=== PATIENT | male | born 1950 | race Caucasian/White ===

== ENCOUNTER 2017-12-31 14:51 | Emergency (ER) | payer OTHER ==
--- NOTE | 2017-12-31 15:44 | EDPHY ---
H & P Time Seen by Provider: 12/31/17 15:20 HPI/ROS: CHIEF COMPLAINT: Abdominal pain HISTORY OF PRESENT ILLNESS: Patient is a 67-year-old male with a history of coronary artery disease, hypertension and high cholesterol who presents emergency department with left lower abdominal pain. Patient states his pain started this morning. It moved from left lower quadrant to the left flank. He has had nausea nonbloody emesis x1. No diarrhea. The patient denies fevers or chills. No dysuria frequency. No hematuria. REVIEW OF SYSTEMS: My complete review of systems is negative except as mentioned in the HPI. Past Medical/Surgical History: Includes coronary artery disease, IHSS, hypertension, high cholesterol Past surgical history: Orthopedic surgery, hydrocele surgery Social history: Patient does not smoke or drink alcohol. Smoking Status: Never smoked Physical Exam: Vitals noted GENERAL: Well-appearing, in no acute distress, alert. HEENT: Eyes normal to inspection, normal pharynx, no signs of dehydration. NECK: [No thyromegaly, no lymphadenopathy, supple. RESPIRATORY: Clear to auscultation bilaterally, no rales, rhonchi or wheezing. CVS: Regular rate and rhythm, no rubs, murmurs, or gallops. ABDOMEN: Soft, left lower quadrant tenderness to palpation. This extends laterally in [place] on his abdomen. No rash. Nondistended, no organomegaly. BACK: Normal to inspection, no CVA tenderness. SKIN: Normal color, no rash, warm, dry. No pallor. EXTREMITIES: No pedal edema, no calf tenderness, no Homans sign or cords, no joint swelling. NEURO/PSYCH: Alert and oriented, normal mood and affect, normal motor sensory exam. No obvious cranial nerve deficit. Constitutional: Initial Vital Signs Temperature (C) 37.8 C 12/31/17 14:57 Heart Rate 60 12/31/17 14:57 Respiratory Rate 18 12/31/17 14:57 Blood Pressure 156/84 H 12/31/17 14:57 O2 Sat (%) 97 12/31/17 14:57 O2 Delivery Mode Room Air Allergies/Adverse Reactions: codeine [Codeine] Allergy (Mild, Verified 12/31/17 15:01) Other-Enter Comments Home Medications: Medication Instructions Recorded Atorvastatin Calcium [Lipitor] 40 mg PO HS 06/03/16 Lisinopril [Zestril 5 mg (*)] 5 mg PO DAILY 06/03/16 Nebivolol HCl [Bystolic 5 mg (*)] 10 mg PO HS 06/03/16 Aspirin EC [Aspirin EC 325 mg (*)] 325 mg PO DAILY #0 tab 06/04/16 Clopidogrel Bisulfate [Plavix (*)] 75 mg PO DAILY #0 tab 06/04/16 Algaeomega 12/31/17 Huperzine 12/31/17 Hydrocodone/APAP 5/325 [[facility] 1 - 2 tab PO Q4 #13 tab 12/31/17 5/325 (RX)] Tamsulosin HCl [Flomax] 0.4 mg PO DAILY #4 cap 12/31/17 Medical Decision Making - Diagnostics Imaging Results: Imaging Impressions Abdomen/Pelvis CT 12/31/17 16:45 Impression: 1. Bilateral nephrolithiasis with 2.5 mm distal left ureteral calculus and associated moderate hydronephrosis. 2. Diverticulosis without evidence of diverticulitis. 3. Aortic atherosclerosis without aneurysm. Attention: This CT examination is specifically designed to evaluate patients who are clinically suspected of having acute obstructive uropathy. This examination does not use radiographic contrast, and as such, provides only a limited evaluation of the abdomen, pelvis and retroperitoneum. If there is further clinical suspicion for pathological conditions other than obstructive uropathy, a complete CT evaluation of the abdomen and pelvis utilizing intravenous, oral, and rectal contrast should be considered. ED Course/Re-evaluation: In the emergency department I discussed possible etiologies with the patient. I answered all his questions. IV was placed. Patient was given fentanyl 50 mcg IV and Zofran 4 mg IV for pain and nausea. Patient's white count is 11. The patient's chemistry panel is unremarkable. The patient's UA showed 3-5 white cells at 25-[address] of the abdomen pelvis: Please refer the dictated report. Patient has a 2.5 mm left UVJ stone. There is moderate hydronephrosis. I rechecked the patient. His pain had mostly resolved. It was minimally present. I discussed all results and answered his questions. He felt comfortable discharge. He will follow up with Dr. Aguirre per request. He was given a prescription for Flomax as well as [facility]. He is given warnings prior to leaving. He will return with worsening symptoms. Differential Diagnosis: My differential includes but is not limited to diverticulitis, diverticulosis, diverticular abscess, kidney stone, urinary tract infection, pyelonephritis, small-bowel obstruction, perforation, mass, malignancy - Data Points Laboratory Results: Laboratory Results 12/31/17 15:26 12/31/17 16:07 12/31/17 12/31/17 12/31/17 16:07 15:55 15:26 WBC 11.22 10^3/uL H 10^3/uL (3.80-9.50) RBC 4.63 10^6/uL 10^6/uL (4.40-6.38) Hgb 14.2 g/dL g/dL (13.7-17.5) Hct 41.6 % % (40.0-51.0) MCV 89.8 fL fL (81.5-99.8) MCH 30.7 pg pg (27.9-34.1) MCHC 34.1 g/dL g/dL (32.4-36.7) RDW 12.1 % % (11.5-15.2) Plt Count 171 10^3/uL 10^3/uL (150-400) MPV 11.1 fL fL (8.7-11.7) Neut % (Auto) Not Reported Lymph % (Auto) Not Reported [place] % (Auto) Not Reported Eos % (Auto) Not Reported Baso % (Auto) Not Reported Nucleat RBC Rel Count Not Reported Absolute Neuts (auto) Not Reported Absolute Lymphs (auto) Not Reported Absolute Monos (auto) Not Reported Absolute Eos (auto) Not Reported Absolute Basos (auto) Not Reported Absolute Nucleated RBC Not Reported Immature Gran % Not Reported Seg Neutrophils % 81.0 % % Band Neutrophils % 13.0 % % Lymphocytes % 5.0 % % Monocytes % 1.0 % % Eosinophils % 0 % % Basophils % 0 % % Metamyelocytes % 0 % % Myelocytes % 0 % % Promyelocytes % 0 % % Blast Cells % 0 % % Immature Gran # Not Reported Absolute Seg Neuts 9.09 10^/uL H 10^/uL (1.70-6.50) Absolute Band Neuts 1.46 10^3/uL H 10^3/uL (0.00-0.70) Absolute Lymphocytes 0.56 10^3/uL L 10^3/uL (1.00-3.00) Absolute Monocytes 0.11 10^3/uL L 10^3/uL (0.30-0.80) Absolute Eosinophils 0.00 10^3/uL L 10^3/uL (0.03-0.40) Absolute Basophils 0.00 10^3/uL L 10^3/uL (0.02-0.10) Absolute Metamyelocyte 0.00 10^3/mL 10^3/mL (0.00-0.00) Absolute Myelocytes 0.00 10^3/mL 10^3/mL (0.00-0.00) Absolute Promyelocytes 0.00 10^3/uL 10^3/uL (0.00-0.00) Absolute Plasma Cells 0.00 10^3/uL 10^3/uL (0.00-0.00) RBC/WBC/PLT Morphology NORMAL (NORMAL) Absolute Blast Cells 0.00 10^3/uL 10^3/uL (0.00-0.00) Plasma Cells % 0 % % Platelet Estimate ADEQUATE (ADEQ) Sodium 142 mEq/L mEq/L (135-145) Potassium 4.2 mEq/L mEq/L (3.3-5.0) Chloride 106 mEq/L mEq/L (97-110) Carbon Dioxide 20 mEq/l L mEq/l (22-31) Anion Gap 16 mEq/L mEq/L (8-16) BUN 17 mg/dL mg/dL (7-23) Creatinine 1.2 mg/dL mg/dL (0.7-1.3) Estimated GFR 60 Glucose 113 mg/dL H mg/dL (70-100) Calcium 9.0 mg/dL mg/dL (8.5-10.4) Urine Color YELLOW Urine Appearance HAZY Urine pH 5.0 (5.0-7.5) Ur Specific [place] 1.019 (1.002-1.030) Urine Protein NEGATIVE (NEGATIVE) Urine Ketones NEGATIVE (NEGATIVE) Urine Blood NEGATIVE (NEGATIVE) Urine Nitrate NEGATIVE (NEGATIVE) Urine Bilirubin NEGATIVE (NEGATIVE) Urine Urobilinogen NEGATIVE EU EU (0.2-1.0) Ur Leukocyte Esterase NEGATIVE (NEGATIVE) Urine RBC 25-50 /hpf H /hpf (0-3) Urine WBC 3-5 /hpf H /hpf (0-3) Ur Epithelial Cells TRACE /lpf /lpf (NONE-1+) Urine Mucus TRACE /lpf /lpf (NONE-1+) Urine Glucose NEGATIVE (NEGATIVE) Medications Given: Discontinued Medications Fentanyl (Sublimaze) 50 mcg IVP EDNOW ONE Stop: 12/31/17 15:47 Last Admin: 12/31/17 16:04 Dose: 50 mcg Ondansetron HCl (Zofran) 4 mg IVP EDNOW ONE Stop: 12/31/17 15:47 Last Admin: 12/31/17 16:04 Dose: 4 mg Departure - Departure Disposition: Home, Routine, Self-Care Clinical Impression: Kidney stone on left side Abdominal pain Qualifiers: Abdominal location: left lower quadrant Qualified Code(s): R10.32 - Left lower quadrant pain Condition: Good Instructions: Kidney Stones (ED) Additional Instructions: You have a 2.5 mm stone in your left ureter. Take your medications as directed. Follow up with Dr. Aguirre. Return with increasing pain, vomiting, fever or any other concerns. Referrals: Clair Chiang MD [Primary Care Provider] - 5-7 days, call for appt. Randy Aguirre MD [Medical Doctor] - As per Instructions Prescriptions: Hydrocodone/APAP 5/325 [[facility] 5/325 (RX)] 1 - 2 tab PO Q4 #13 tab Tamsulosin HCl [Flomax] 0.4 mg PO DAILY #4 cap
[2017-12-31] MEDS ORDERED: fentaNYL 100 MCG/2 ML INJ IVP ONE (15:46)
[2017-12-31] MEDS ORDERED: ONDANSETRON 4 MG/2 ML VIAL IVP ONE (15:46)
[2017-12-31 16:07] LABS: PLATELET COUNT 171 10^3/uL (150-400)
[2017-12-31] MEDS ORDERED: TAMSULOSIN HCL 0.4 MG CAP PO ONE ×2 (17:27→17:28)
[2017-12-31 17:30] VITALS: BP 131/71
== END 2017-12-31 17:36 | disposition home or self-care (01) ==
DX: N20.0 Calculus of kidney (principal); I10 Essential (primary) hypertension; I25.10 Atherosclerotic heart disease of native coronary artery without angina pectoris; Z79.82 Long term (current) use of aspirin
CPT/HCPCS: 96374; J2405; J3010

== ENCOUNTER 2019-01-04 18:45 | Emergency (ER) | payer OTHER ==
[2019-01-04] MEDS ORDERED: HYDROmorphONE/DILAUDID 2 MG/ML INJ IVP ONE (19:42)
[2019-01-04] MEDS ORDERED: ONDANSETRON 4 MG/2 ML VIAL IVP ONE (19:42)
[2019-01-04] MEDS ORDERED: NS 1,000 ML IV ONE (19:42)
--- NOTE | 2019-01-04 19:46 | EDPHY ---
HPI/HX/ROS/PE/MDM Narrative: CHIEF COMPLAINT: Abdominal pain HISTORY OF PRESENT ILLNESS: The patient is an anticoagulated (Plavix) 68 y/o male with a history of 9 cardiac stents, kidney stones, hypertension, and hypercholesterolemia complaining of abdominal pain, onset 3 days ago. For the past few days, the pain has been intermittent with no clear factors that cause or improve the pain. Today, the pain has been constant all day and worse when carrying a heavy vacuum upstairs. He has associated tenderness in his testicles. He denies nausea, vomiting, diarrhea, or fever. He reports that his bowel movements have been smaller and harder than normal but denies constipation. He reports he still has his appendix and gallbladder. He denies history of diabetes. He denies recent travel, cigarette use, alcohol ingestion, marijuana use, or illicit drug use. A colonoscopy 2 to 3 years ago was normal. No fever, chills, chest pain, shortness of breath, palpitations, vomiting, diarrhea, urinary complaints, headache, lightheadedness. REVIEW OF SYSTEMS: A comprehensive 10 system review of systems is otherwise negative aside from elements mentioned in the history of present illness and medical decision making PAST MEDICAL HISTORY: 9 cardiac stents, 3 kidney stones this year, hypertension, hypercholesterolemia SOCIAL HISTORY: at bedside, lives in [place], retired VITAL SIGNS: Reviewed by me GENERAL: Well-developed, well-nourished, resting comfortably in no respiratory distress. HEENT: Atraumatic. Eyes: No icterus, no injection. Mouth: moist mucous membranes. No erythema or lesions. Neck: supple with no adenopathy. LUNGS: Clear to auscultation bilaterally, no wheezes, rhonchi or rales. CARDIAC: Regular rate and rhythm, no rubs, murmurs or gallops. ABDOMEN: Left lower quadrant, umbilical, and left inguinal regions are tender to palpation. Soft, nondistended, bowel sounds normal. GENITAL: Normal male external genitalia, no testicular swelling or tenderness. Slight tenderness along the groin and lower left abdominal wall. BACK: No CVA tenderness. EXTREMITIES: No trauma. No edema. Range of motion is normal throughout. NEURO: Alert and oriented, grossly nonfocal. SKIN: Warm and dry, no rash. PSYCHIATRIC: Normal mentation, no agitation. ED Course: The patient presents with a 3 day history of abdominal pain. Initially symptoms were intermittent but have progressed to constant. He denies any other associated symptoms. Plan for CBC, basic metabolic panel, urinalysis, and abdominal CT. CT indicates diverticulitis. There is no evidence of abscess or perforation. Patient has white count of 11,000, normal electrolytes, normal urinalysis. I believe he is a good candidate for oral antibiotic an outpatient treatment of his diverticulitis. I discussed this with the patient and his . Patient was placed on Augmentin 875 twice daily x7 days. He was given a prepack of hydrocodone to use as needed for severe pain. He will use occasional ibuprofen as well as Tylenol for [id number] pain. Patient will follow up with his primary care physician on Monday or Monday of next week and be seen sooner if he is not improving as expected. MDM: The differential diagnosis for the patient's abdominal pain was considered including but not limited to diverticulitis, diverticular abscess, enteritis, bowel obstruction, kidney stone, constipation. - Data Points Imaging Results: Imaging Impressions Abdomen CT 01/04/19 19:42 Impression: 1. Mild acute sigmoid diverticulitis, without abscess or perforation. 2. Stable left adrenal adenoma. 3. Bilateral nonobstructing nephrolithiasis. Results called to Dr. Brannon at 8:30 p.m. Imaging: Discussed imaging studies w/ house calls nurse practitioner Radiologist Laboratory Results: Laboratory Results 01/04/19 19:15 01/04/19 19:15 01/04/19 01/04/19 01/04/19 19:54 19:15 19:15 WBC 11.30 10^3/uL H 10^3/uL (3.80-9.50) RBC 4.50 10^6/uL 10^6/uL (4.40-6.38) Hgb 14.0 g/dL g/dL (13.7-17.5) Hct 41.9 % % (40.0-51.0) MCV 93.1 fL fL (81.5-99.8) MCH 31.1 pg pg (27.9-34.1) MCHC 33.4 g/dL g/dL (32.4-36.7) RDW 12.3 % % (11.5-15.2) Plt Count 141 10^3/uL L 10^3/uL (150-400) MPV 11.3 fL fL (8.7-11.7) Neut % (Auto) 79.2 % H % (39.3-74.2) Lymph % (Auto) 9.5 % L % (15.0-45.0) [place] % (Auto) 10.1 % % (4.5-13.0) Eos % (Auto) 0.6 % % (0.6-7.6) Baso % (Auto) 0.2 % L % (0.3-1.7) Nucleat RBC Rel Count 0.0 % % (0.0-0.2) Absolute Neuts (auto) 8.96 10^3/uL H 10^3/uL (1.70-6.50) Absolute Lymphs (auto) 1.07 10^3/uL 10^3/uL (1.00-3.00) Absolute Monos (auto) 1.14 10^3/uL H 10^3/uL (0.30-0.80) Absolute Eos (auto) 0.07 10^3/uL 10^3/uL (0.03-0.40) Absolute Basos (auto) 0.02 10^3/uL 10^3/uL (0.02-0.10) Absolute Nucleated RBC 0.00 10^3/uL 10^3/uL (0-0.01) Immature Gran % 0.4 % % (0.0-1.1) Immature Gran # 0.04 10^3/uL 10^3/uL (0.00-0.10) Sodium 139 mEq/L mEq/L (135-145) Potassium 3.9 mEq/L mEq/L (3.5-5.2) Chloride 105 mEq/L mEq/L (97-110) Carbon Dioxide 24 mEq/l mEq/l (22-31) Anion Gap 10 mEq/L mEq/L (6-14) BUN 17 mg/dL mg/dL (7-23) Creatinine 0.9 mg/dL mg/dL (0.7-1.3) Estimated GFR > 60 Glucose 93 mg/dL mg/dL (70-100) Calcium 9.1 mg/dL mg/dL (8.5-10.4) Urine Color YELLOW Urine Appearance HAZY Urine pH 5.0 (5.0-7.5) Ur Specific [place] 1.021 (1.002-1.030) Urine Protein NEGATIVE (NEGATIVE) Urine Ketones NEGATIVE (NEGATIVE) Urine Blood NEGATIVE (NEGATIVE) Urine Nitrate NEGATIVE (NEGATIVE) Urine Bilirubin NEGATIVE (NEGATIVE) Urine Urobilinogen NEGATIVE EU EU (0.2-1.0) Ur Leukocyte Esterase NEGATIVE (NEGATIVE) Urine RBC 1-3 /hpf /hpf (0-3) Urine WBC 1-3 /hpf /hpf (0-3) Ur Epithelial Cells NONE SEEN /lpf /lpf (NONE-1+) Urine Mucus TRACE /lpf /lpf (NONE-1+) Urine Glucose NEGATIVE (NEGATIVE) Medications Given: Discontinued Medications Hydrocodone Bitart/Acetaminophen ([place] 5/325mg Prepack#6) 1 btl TAKEHOME EDNOW ONE Stop: 01/04/19 20:31 Last Admin: 01/04/19 21:07 Dose: 1 btl Amoxicillin/Clavulanate Potassium (Augmentin 875mg) 875 mg PO EDNOW ONE PRN Reason: Protocol Stop: 01/04/19 20:31 Last Admin: 01/04/19 21:06 Dose: 875 mg Hydromorphone HCl (Dilaudid) 0.5 mg IVP EDNOW ONE Stop: 01/04/19 19:43 Last Admin: 01/04/19 20:21 Dose: 0.5 mg Sodium Chloride (Ns) 1,000 mls @ 0 mls/hr IV EDNOW ONE; Wide Open PRN Reason: Protocol Stop: 01/04/19 19:43 Last Admin: 01/04/19 20:21 Dose: 1,000 mls Ketorolac Tromethamine (Toradol) 15 mg IVP EDNOW ONE Stop: 01/04/19 21:00 Last Admin: 01/04/19 21:07 Dose: 15 mg Ondansetron HCl (Zofran) 4 mg IVP EDNOW ONE Stop: 01/04/19 19:43 Last Admin: 01/04/19 20:21 Dose: 4 mg General Time Seen by Provider: 01/04/19 19:23 Initial Vital Signs: Initial Vital Signs Temperature (C) 37.2 C 01/04/19 18:53 Heart Rate 78 01/04/19 18:53 Respiratory Rate 18 05/24/19 18:53 Blood Pressure 132/77 H 01/04/19 18:53 O2 Sat (%) 92 01/04/19 18:53 O2 Delivery Mode Room Air O2 (L/minute) 2 Allergies/Adverse Reactions: codeine [Codeine] Allergy (Mild, Verified 01/04/19 18:53) Other-Enter Comments Home Medications: Medication Instructions Recorded Atorvastatin Calcium [Lipitor] 40 mg PO HS 06/03/16 Lisinopril [Zestril 5 mg (*)] 5 mg PO DAILY 06/03/16 Nebivolol HCl [Bystolic 5 mg (*)] 10 mg PO HS 06/03/16 Aspirin EC [Aspirin EC 325 mg (*)] 325 mg PO DAILY #0 tab 06/04/16 Clopidogrel Bisulfate [Plavix (*)] 75 mg PO DAILY #0 tab 06/04/16 Algaeomega 12/31/17 Huperzine 12/31/17 Hydrocodone/APAP 5/325 [[place] 1 - 2 tab PO Q4 #13 tab 12/31/17 5/325 (RX)] Tamsulosin HCl [Flomax] 0.4 mg PO DAILY #4 cap 12/31/17 Amoxicillin/Clavulanate Pot 875 mg PO BID #14 tab 01/04/19 [Augmentin 875 MG TAB (*)] Departure - Departure Disposition: Home, Routine, Self-Care Clinical Impression: Diverticulitis Abdominal pain Qualifiers: Abdominal location: left lower quadrant Qualified Code(s): R10.32 - Left lower quadrant pain Condition: Fair Instructions: Hydrocodone/Acetaminophen (By mouth), Diverticulitis (ED), Diverticulitis Diet (ED) Additional Instructions: Your CT scan demonstrates diverticulitis. The treatment for this is pain medication and antibiotics. Please take the Augmentin 2 times a day for the next 7 days. You been given a prepack of hydrocodone. You may use this as needed for moderate to severe pain. You may take Tylenol or ibuprofen as needed for mild- to-moderate pain. Remember that the hydrocodone may make you constipated. Please use regular doses of the stool softener when you are taking this narcotic. Referrals: Clair Chiang MD [Primary Care Provider] - As per Instructions Prescriptions: Amoxicillin/Clavulanate Pot [Augmentin 875 MG TAB (*)] 875 mg PO BID #14 tab Report Scribed for: Mirela Brannon Report Scribed by: Alanna Thorne Date of Report: 01/04/19 Time of Report: 20:11 Physician Review and Approval Statement: Portions of this note were transcribed by a certified medical aide. I personally performed a history, physical exam, medical decision making, and confirmed accuracy of information the transcribed note.
[2019-01-04 19:50] LABS: PLATELET COUNT 141 10^3/uL (150-400)
[2019-01-04] MEDS ORDERED: IOPAMIDOL (ISOVUE-300) 100 ML BTL ONE (19:59)
[2019-01-04 20:27] VITALS: BP 141/81
[2019-01-04] MEDS ORDERED: HYDROCOD/APAP 5/325 PREPACK#6 BTL TAKEHOME ONE (20:30)
[2019-01-04] MEDS ORDERED: AMOXICILLIN/CLAVULANATE POT 875/125 MG TAB PO ONE (20:30)
[2019-01-04] MEDS ORDERED: KETOROLAC 15 MG/1 ML SDV IVP ONE (20:59)
== END 2019-01-04 21:19 | disposition home or self-care (01) ==
DX: K57.32 Diverticulitis of large intestine without perforation or abscess without bleeding (principal); D35.00 Benign neoplasm of unspecified adrenal gland; N20.0 Calculus of kidney; Z79.01 Long term (current) use of anticoagulants
CPT/HCPCS: 96374; J1170; J1885; J2405; Q9967